=== PATIENT | male | born 1980 | race African-American/Black ===

== ENCOUNTER 2022-04-14 16:35 | Emergency (ER) | payer MEDICAID ==
[~2022-04-14] VITALS: Ht 177.8 cm; Wt 92.0 kg
[2022-04-14 16:42] VITALS: BP 153/97
== END 2022-04-14 20:30 | disposition home or self-care (01) ==
LOC: ER 17:01
DX: S52.501A Unspecified fracture of the lower end of right radius, initial encounter for closed fracture (principal); W18.30XA Fall on same level, unspecified, initial encounter; Y93.89 Activity, other specified; Y92.89 Other specified places as the place of occurrence of the external cause; Y99.8 Other external cause status
CPT/HCPCS: 73110; 73130; 99284